=== PATIENT | female | born 1950 | race Caucasian/White ===

== ENCOUNTER 2018-06-22 15:16 | Observation (INO) | payer OTHER ==
[~2018-06-22] VITALS: Ht 157.5 cm; Wt 132.0 kg
[2018-06-22 16:00] LABS: BASOPHILS % (AUTO) 0.6 % (0.0-5.0); EOSINOPHILS % (AUTO) 2.9 % (0.0-8.0); HEMATOCRIT 41.6 % (36-48); LYMPHOCYTES % (AUTO) 13.9 % (21.0-51.0); MEAN CORPUSCULAR HEMOGLOBIN 30.7 pg (27.0-33.0); MEAN CORPUSCULAR HGB CONC 33.3 g/dL (32.0-36.0); MONOCYTES % (AUTO) 8.8 % (3.0-13.0); NEUTROPHILS % (AUTO) 73.8 % (40.0-77.0); PLATELET COUNT (AUTO) 162 K/uL (130-400); RED BLOOD CELL COUNT(AUTO) 4.53 MIL/uL (4.00-5.50); RED CELL DISTRIBUTION WIDTH 15.1 % (11.0-15.5); WHITE BLOOD COUNT (AUTO) 10.2 K/uL (4.8-10.8)
[2018-06-22 16:14] LABS: CREATININE 1.1 mg/dL (0.5-1.5); POTASSIUM 3.7 mmol/L (3.5-5.1)
[2018-06-22 16:15] LABS: INR 0.95 (0.85-1.15); PARTIAL THROMBOPLASTIN TIME 23.1 SEC (26.3-35.5)
[2018-06-22 16:29] LABS: ALBUMIN 3.2 g/dL (3.5-5.0); BILIRUBIN,TOTAL 0.3 mg/dL (0.2-1.0); CREATINE KINASE MB 0.9 ng/mL (0.5-3.6); TOTAL PROTEIN, SERUM 7.6 g/dL (6.0-8.3)
[2018-06-22] MEDS ORDERED: ENOXAPARIN SODIUM 100 MG/1 ML SQ ONE (18:41)
[2018-06-22] MEDS ORDERED: ENOXAPARIN SODIUM 30 MG/0.3 ML SQ ONE (18:42)
[2018-06-22] MEDS ORDERED: IOHEXOL 350 MG/ML 100ML INFUS..BTL IV ONE (19:11)
[2018-06-22] MEDS ORDERED: GLUCAGON 1MG KIT 1 MG ML IM PRN (19:15)
[2018-06-22] MEDS ORDERED: DEXTROSE 50%-WATER 50 ML DISP.SYRIN IV PRN (19:15)
[2018-06-22] MEDS: INSULIN R PO SS1 SQ SCH (21:00)
[2018-06-22] MEDS ORDERED: LABETALOL HCL 5 MG/ML 20ML VIAL IV ONE (21:17)
[2018-06-22 22:38] LABS: APPEARANCE,URINE Clear (CLEAR); BILIRUBIN,URINE Negative (NEGATIVE); COLOR,URINE Yellow (YELLOW); GLUCOSE, URINE (UA) Negative (NEGATIVE); KETONES,URINE Negative (NEGATIVE); LEUKOCYTE ESTERASE ,URINE Negative (NEGATIVE); NITRATE,URINE Negative (NEGATIVE); OCCULT BLOOD,URINE Small (NEGATIVE); PROTEIN,URINE Negative (NEGATIVE); UROBILINOGEN,URINE 0.2 mg/dL (0.2-1.0)
[2018-06-22 22:43] LABS: BACTERIA,URINE Rare /HPF (None Seen); SQUAMOUS EPITHELIAL CELL,UR Moderate /HPF (0-2); WBC,URINE 0-1 /HPF (0-1)
[2018-06-22 23:05] VITALS: BP 131/57
[2018-06-22] MEDS ORDERED: CLONIDINE HCL 0.1 MG TABLET PO PRN (23:30)
[2018-06-22] MEDS ORDERED: LABETALOL HCL 5 MG/ML 20ML VIAL IV PRN (23:30)
[2018-06-23 03:52] VITALS: BP 113/56
[2018-06-23 05:26] LABS: CREATININE 1.1 mg/dL (0.5-1.5); POTASSIUM 3.8 mmol/L (3.5-5.1)
[2018-06-23] MEDS ORDERED: BUDE10.2 IH (05:48)
[2018-06-23] MEDS ORDERED: AUD IH (05:48)
[2018-06-23] MEDS ORDERED: CLON0.1T PO (05:48)
[2018-06-23] MEDS ORDERED: ALBU6.7H IH (05:48)
[2018-06-23] MEDS ORDERED: AMLO5TAB7 PO (05:48)
[2018-06-23] MEDS ORDERED: MOME17N EN (05:48)
[2018-06-23] MEDS ORDERED: FAMO10TA39 PO (05:48)
[2018-06-23] MEDS ORDERED: LEVO175T9 PO (05:48)
[2018-06-23] MEDS ORDERED: OLME1TAB11 PO (05:48)
[2018-06-23] MEDS ORDERED: PITA2TAB2 PO (05:48)
[2018-06-23] MEDS ORDERED: LEVO150T11 PO (05:48)
[2018-06-23] MEDS ORDERED: SERT50TA12 PO (05:48)
[2018-06-23] MEDS ORDERED: CALC1TAB2 PO (05:48)
[2018-06-23] MEDS ORDERED: MONT10TA21 PO (05:48)
[2018-06-23] MEDS ORDERED: ALBUTEROL SULFATE 0.083% 2.5 MG/3 ML INH IH PRN (06:00)
[2018-06-23] MEDS: INSULIN R PO SS1 SQ SCH ×4 (07:01→20:41)
[2018-06-23] MEDS ORDERED: LEVOTHYROXINE 100 MCG TABLET PO SCH (07:30)
[2018-06-23] MEDS ORDERED: LEVOTHYROXINE 75 MCG TABLET PO SCH (07:30)
[2018-06-23 08:00] VITALS: BP 128/76
[2018-06-23] MEDS: CLONIDINE HCL 0.1 MG TABLET PO SCH ×2 (09:00→20:41)
[2018-06-23] MEDS ORDERED: MORPHINE SULFATE 2 MG/ML 1ML SYG IVP PRN (09:00)
[2018-06-23] MEDS: FLUTICASONE PROPIONATE 50MCG/SPRAY 16 GM BOTTLE EN SCH (09:00)
[2018-06-23] MEDS: AMLODIPINE BESYLATE 5 MG TAB PO SCH (09:00)
[2018-06-23] MEDS: FAMOTIDINE 20MG TAB 20 MG TAB PO SCH (09:00)
[2018-06-23] MEDS: LIVALO PO SCH (09:00)
[2018-06-23] MEDS: SERTRALINE HCL 50 MG TABLET PO SCH (09:00)
[2018-06-23] MEDS ORDERED: ONDANSETRON HCL 4 MG/2 ML VIAL IVP PRN (09:00)
[2018-06-23] MEDS: HYDROCHLOROTHIAZIDE 25 MG TABLET PO SCH (09:00)
[2018-06-23] MEDS: LOSARTAN 100 MG TABLET PO SCH (09:00)
[2018-06-23] MEDS ORDERED: HYDROCODONE/ACETAMINOPHEN 5/325 MG TAB PO PRN (09:00)
[2018-06-23] MEDS: ENOXAPARIN SODIUM 120 MG/0.8ML SQ SCH ×2 (10:10→18:25)
[2018-06-23] MEDS: ACETAMINOPHEN 325 MG TAB PO PRN (10:11)
[2018-06-23] MEDS: ALBUTEROL SULFATE 0.083% 2.5 MG/3 ML INH IH SCH ×3 (10:55→23:14)
[2018-06-23 12:00] VITALS: BP 132/82
[2018-06-23] MEDS: CALCIUM 600 + VITAMIN D 400 TABLET PO SCH ×2 (12:00→17:00)
[2018-06-23] MEDS ORDERED: PHARMACY COMMUNICATION MISC SCH (15:30)
[2018-06-23] MEDS: FUROSEMIDE 10 MG/ML 2ML VIAL IV SCH (17:00)
[2018-06-23] MEDS: BUDESONIDE 0.5 MG/2 ML INH IH SCH (18:35)
[2018-06-23 19:00] VITALS: BP 150/72
[2018-06-23] MEDS ORDERED: MONTELUKAST SODIUM 10 MG TAB PO SCH (21:00)
[2018-06-24] VITALS: BP 149/59
[2018-06-24] MEDS: FUROSEMIDE 10 MG/ML 2ML VIAL IV SCH ×2 (00:30→09:00)
[2018-06-24 04:00] VITALS: BP 150/82
[2018-06-24] MEDS: BUDESONIDE 0.5 MG/2 ML INH IH SCH ×2 (06:02→18:26)
[2018-06-24] MEDS: ALBUTEROL SULFATE 0.083% 2.5 MG/3 ML INH IH SCH ×3 (06:02→18:25)
[2018-06-24] MEDS ORDERED: LEVOTHYROXINE 150 MCG TABLET PO SCH (07:30)
[2018-06-24] MEDS: INSULIN R PO SS1 SQ SCH ×3 (07:30→16:30)
[2018-06-24 08:00] VITALS: BP 160/87
[2018-06-24] MEDS: LOSARTAN 100 MG TABLET PO SCH (09:00)
[2018-06-24] MEDS: FLUTICASONE PROPIONATE 50MCG/SPRAY 16 GM BOTTLE EN SCH (09:00)
[2018-06-24] MEDS: HYDROCHLOROTHIAZIDE 25 MG TABLET PO SCH (09:00)
[2018-06-24] MEDS: LIVALO PO SCH (09:00)
[2018-06-24] MEDS: AMLODIPINE BESYLATE 5 MG TAB PO SCH (09:00)
[2018-06-24] MEDS: FAMOTIDINE 20MG TAB 20 MG TAB PO SCH (09:00)
[2018-06-24] MEDS: SERTRALINE HCL 50 MG TABLET PO SCH (09:00)
[2018-06-24] MEDS: CLONIDINE HCL 0.1 MG TABLET PO SCH (09:00)
[2018-06-24] MEDS: ACETAMINOPHEN 325 MG TAB PO PRN (09:18)
[2018-06-24] MEDS: FUROSEMIDE 20 MG TABLET PO SCH ×2 (09:18→17:00)
[2018-06-24] MEDS: ENOXAPARIN SODIUM 120 MG/0.8ML SQ SCH ×2 (09:19→18:42)
[2018-06-24 12:00] VITALS: BP 152/52
[2018-06-24] MEDS: CALCIUM 600 + VITAMIN D 400 TABLET PO SCH ×2 (12:00→17:00)
[2018-06-24 16:00] VITALS: BP 160/64
== END 2018-06-24 19:30 | disposition home or self-care (01) ==
LOC: EDH 15:16 → EDHIP 18:34 → 3CH 22:40
PROVIDERS: ADMIT Internal Medicine; ATTEND Internal Medicine
DX: I82.402 Acute embolism and thrombosis of unspecified deep veins of left lower extremity (principal); I26.99 Other pulmonary embolism without acute cor pulmonale; E03.9 Hypothyroidism, unspecified; E11.9 Type 2 diabetes mellitus without complications; E66.01 Morbid (severe) obesity due to excess calories; E78.5 Hyperlipidemia, unspecified; I10 Essential (primary) hypertension; J44.9 Chronic obstructive pulmonary disease, unspecified; J96.01 Acute respiratory failure with hypoxia; Z99.81 Dependence on supplemental oxygen
CPT/HCPCS: 36415 ×2; 71045; 71275; 80048; 80053; 81001; 82550; 82553; 82948 ×3; 84484; 85025; 85610; 85730; 93005; 93306; 93970; 94640 ×10; 94664; 94760; 96372 ×2; 99291; G0378 ×49; J1650 ×6; J3490; Q9967

== ENCOUNTER 2021-04-02 19:29 | Emergency (ER) | payer MEDICARE, OTHER ==
[~2021-04-02] VITALS: Ht 157.5 cm; Wt 132.0 kg
[~2021-04-02 19:29] MED LIST: ALBU6.7H9 IH; AMLO-257 PO; AUD IH; BUDE10.2 IH; CALC1TAB2 PO; CLON0.1T PO; FAMO10TA39 PO; LEVO150T11 PO; LEVO175T9 PO; MOME17SP4 EN; MONT10TA21 PO; OLME1TAB11 PO; PITA2TAB2 PO; SERT-439 PO
[2021-04-02] MEDS ORDERED: 0.9%NACL 1000ML 1,000 ML IV STA (20:16)
[2021-04-02] MEDS ORDERED: ONDANSETRON 4MG INJ IVP ONE (20:30)
[2021-04-02] MEDS ORDERED: KETOROLAC 30MG VIAL (30MG/ML) IVP ONE (20:30)
[2021-04-02 20:45] LABS: BASOPHILS % (AUTO) 0.3 % (0.0-5.0); EOSINOPHILS % (AUTO) 0.5 % (0.0-8.0); HEMATOCRIT 43.3 % (36-48); LYMPHOCYTES % (AUTO) 7.7 % (21.0-51.0); MEAN CORPUSCULAR HGB CONC 32.3 g/dL (32.0-36.0); MEAN CORPUSCULAR VOLUME 92.7 fL (79-99); MONOCYTES % (AUTO) 4.5 % (3.0-13.0); NEUTROPHILS % (AUTO) 86.2 % (40.0-77.0); PLATELET COUNT (AUTO) 241 K/uL (130-400); RED BLOOD CELL COUNT(AUTO) 4.67 MIL/uL (4.00-5.50); RED CELL DISTRIBUTION WIDTH 13.8 % (11.0-15.5)
[2021-04-02 20:59] LABS: CREATININE 1.2 mg/dL (0.5-1.5); POTASSIUM 3.6 mmol/L (3.5-5.1)
[2021-04-02 21:03] LABS: ALBUMIN 3.3 g/dL (3.5-5.0); BILIRUBIN,TOTAL 0.2 mg/dL (0.2-1.0); TOTAL PROTEIN, SERUM 8.5 g/dL (6.0-8.3)
[2021-04-02 23:14] VITALS: BP 141/60
[2021-04-02] MEDS ORDERED: ONDANSETRON 4MG INJ ONE (23:16)
[2021-04-02] MEDS ORDERED: KETOROLAC 15MG/ML VIAL (15MG/ML) ONE (23:16)
[2021-04-03 01:04] VITALS: BP 135/68
[2021-04-03] MEDS ORDERED: TAMSULOSIN HCL 0.4 MG CAP.ER.24H ONE (01:28)
[2021-04-03] MEDS ORDERED: TAMSULOSIN HCL 0.4 MG CAP.ER.24H PO SCH (01:30)
[2021-04-03] MEDS ORDERED: TAMS-1 PO (01:32)
[2021-04-03] MEDS ORDERED: IBUP-2697 PO (01:32)
== END 2021-04-03 01:41 | disposition home or self-care (01) ==
LOC: EDH 19:29
DX: N20.0 Calculus of kidney (principal); I10 Essential (primary) hypertension; E78.00 Pure hypercholesterolemia, unspecified; E11.9 Type 2 diabetes mellitus without complications; J44.9 Chronic obstructive pulmonary disease, unspecified; Z90.710 Acquired absence of both cervix and uterus; Z88.0 Allergy status to penicillin; Z88.5 Allergy status to narcotic agent; Z88.6 Allergy status to analgesic agent; Z79.899 Other long term (current) drug therapy
CPT/HCPCS: 36415; 74176; 80053; 83690; 85025; 96374; 96375; 99284; J1885; J2405